=== PATIENT | male | born 1945 | race Asian ===

== ENCOUNTER 2018-09-13 21:45 | Emergency (ER) | payer OTHER ==
[2018-09-14 01:50] LABS: ADD MAN DIFF? NO
[2018-09-14 01:51] LABS: BASOPHILS % 0.4 % (0.0-2.0); EOSINOPHILS # 0.2 10^3/ul (0.0-0.5); HEMATOCRIT 40.8 % (42.0-52.0); HEMOGLOBIN 13.2 g/dl (14.0-18.0); LYMPHOCYTES # 1.2 10^3/ul (0.8-2.9); LYMPHOCYTES % 22.3 % (15.0-51.0); MEAN CORPUSCULAR HEMOGLOBIN 31.1 pg (29.0-33.0); MEAN CORPUSCULAR HGB CONC 32.4 g/dl (32.0-37.0); MEAN PLATELET VOLUME 10.6 fl (7.4-10.4); MONOCYTE # 0.7 10^3/ul (0.3-0.9); MONOCYTES % 13.1 % (0.0-11.0); NEUTROPHIL # 3.3 10^3/ul (1.6-7.5); NEUTROPHILS % 59.7 % (39.0-77.0); PLATELET COUNT 167 10^3/UL (140-415); RED BLOOD COUNT 4.25 10^6/ul (4.70-6.10)
[2018-09-14 01:51] LABS: WHITE BLOOD COUNT 5.5 10^3/ul (4.8-10.8)
[2018-09-14] MEDS: SOD CHLORIDE 0.9% 500 ML IV (01:51)
[2018-09-14 02:10] LABS: ANION GAP 6 (5-13); BLOOD UREA NITROGEN 20 mg/dl (7-20); CALCIUM 9.2 mg/dl (8.4-10.2); CARBON DIOXIDE 31 mmol/L (21-31); CHLORIDE 105 mmol/L (97-110); CREATININE 0.57 mg/dl (0.61-1.24); GLUCOSE 107 mg/dl (70-220); INR 0.88; POTASSIUM 4.4 mmol/L (3.5-5.1); PT RATIO 0.9; SODIUM 142 mmol/L (135-144)
[2018-09-14 02:11] LABS: PARTIAL THROMBOPLASTIN TIME 34.9 Sec (23.0-35.0)
[2018-09-14 02:21] LABS: TROPONIN-I < 0.012 ng/ml (0.000-0.120)
== END 2018-09-14 03:49 | disposition home or self-care (01) ==
LOC: E/R 21:45
DX: R55 Syncope and collapse (principal)
CPT/HCPCS: 36415; 70450; 71045; 80048; 84484; 85025; 85610; 85730; 93005; 99285-25